=== PATIENT | male | born 1960 | race Caucasian/White ===

== ENCOUNTER 2019-06-22 11:30 | Inpatient (IN) | payer MEDICARE, OTHER ==
[~2019-06-22] VITALS: Ht 185.4 cm; Wt 81.2 kg
[2019-06-22] MEDS ORDERED: SODIUM CHLORIDE 0.9% 500 ML IV ONE (12:44)
[2019-06-22 13:05] LABS: BASOPHILS % 1.2 % (0.0-2.0); EOSINOPHILS % 1.9 % (0.0-5.0); HEMATOCRIT. 35.8 % (42.0-52.0); HEMOGLOBIN. 12.6 g/dL (14.0-18.0); LYMPHOCYTES % 19.4 % (20.0-50.0); MEAN CORPUSCULAR VOLUME 99.5 fL (80.0-94.0); MEAN PLATELET VOLUME 8.1 fl (7.4-10.4); MONOCYTES % 13.6 % (2.0-8.0); NEUTROPHILS % 63.9 % (40.0-76.0); PLATELET 182 x1000/uL (130-400); RED CELL DISTRIBUTION WIDTH 16.5 % (11.6-14.6)
[2019-06-22 13:09] LABS: PROTHROMBIN TIME 10.6 sec (9.6-11.0)
[2019-06-22 13:10] LABS: CHLORIDE 93 mEq/L (98-107)
[2019-06-22 13:15] LABS: ETHANOL BLOOD < 10 mg/dL
[2019-06-22] MEDS ORDERED: PIPERACILLIN/TAZ 3.375G PREMIX 50 ML IV ONE (13:30)
[2019-06-22] MEDS ORDERED: SODIUM CHLORIDE 0.9% 1000ML BAG (SEPSIS BOLUS) IV ONE (13:30)
[2019-06-22] MEDS ORDERED: DOCUSATE SODIUM 100MG CAPSULE PO PRN (15:30)
[2019-06-22] MEDS ORDERED: DEXTROSE 50% WATER 50ML SYRINGE IV PRN (15:30)
[2019-06-22] MEDS ORDERED: IPRATROPIUM/ALBUTEROL 0.5-3(2.5)MG/3ML NEB NEB PRN (15:30)
[2019-06-22] MEDS ORDERED: ONDANSETRON HCL 4MG/2ML INJ IV PRN (15:30)
[2019-06-22] MEDS ORDERED: MAGNESIUM/ALUMINUM HYDROXIDE/SIMETHICONE 30ML UDC PO PRN (15:30)
[2019-06-22] MEDS ORDERED: NITROGLYCERIN 0.4MG TABLET SL SL PRN (15:30)
[2019-06-22] MEDS ORDERED: GUAIFENESIN 200MG/10ML SUGAR FREE UDC PO PRN (15:30)
[2019-06-22] MEDS ORDERED: PIPERACILLIN/TAZ 3.375G PREMIX 50 ML IV SCH (15:30)
[2019-06-22] MEDS ORDERED: ACETAMINOPHEN 325MG TABLET PO PRN (15:30)
[2019-06-22 20:48] VITALS: BP 120/69
[2019-06-22 21:00] VITALS: BP 120/69
[2019-06-22] MEDS: BLOOD SUGAR DIAGNOSTIC STRIP TEST SCH (23:00)
[2019-06-22] MEDS: INSULIN LISPRO 100 UNITS/ML SUBCUT SCH (23:00)
[2019-06-23] VITALS: BP 110/56
[2019-06-23] MEDS ORDERED: VANCOMYCIN 1250MG in DEXTROSE 5% WATER 250ML IV NR ×2
[2019-06-23] MEDS: ASCORBIC ACID 500 MG TABLET PO SCH ×3 (00:04→20:46)
[2019-06-23] MEDS: SEVELAMER CARBONATE 800 MG TABLET PO SCH ×4 (00:05→18:28)
[2019-06-23] MEDS: ZOLPIDEM TARTRATE 5MG TABLET PO PRN ×2 (00:05→22:39)
[2019-06-23 01:02] LABS: CREATINE KINASE 62 IU/L (39-308)
[2019-06-23 01:03] LABS: CREATINE KINASE MB FRACTION 1.1 ng/mL (0.5-3.6)
[2019-06-23] MEDS: PIPERACILLIN/TAZOBACTAM 2.25 G in DEXTROSE 5% WATER 50 ML IV SCH ×2 (03:20→15:05)
[2019-06-23 04:00] VITALS: BP 128/57
[2019-06-23 07:34] LABS: CREATINE KINASE 52 IU/L (39-308)
[2019-06-23 07:35] LABS: CREATINE KINASE MB FRACTION < 1.0 ng/mL (0.5-3.6)
[2019-06-23] MEDS: INSULIN LISPRO 100 UNITS/ML SUBCUT SCH ×4 (08:10→20:49)
[2019-06-23] MEDS: BLOOD SUGAR DIAGNOSTIC STRIP TEST SCH ×4 (08:33→20:49)
[2019-06-23] MEDS: ZINC SULFATE 220 MG ( 50 ) CAPSULE PO SCH (09:30)
[2019-06-23] MEDS: ASPIRIN 325MG EC TABLET PO SCH (09:30)
[2019-06-23] MEDS: FOLIC ACID/VITAMIN B COMP W-C TABLET PO SCH (09:30)
[2019-06-23] MEDS: ENOXAPARIN 30MG/0.3ML SYR SUBCUT SCH (09:30)
[2019-06-23] MEDS: FAMOTIDINE 20MG TABLET PO SCH (09:31)
[2019-06-23 12:00] VITALS: BP 138/79
[2019-06-23 16:00] VITALS: BP 140/76
[2019-06-23 19:43] VITALS: BP 141/72
[2019-06-23] MEDS: CLONIDINE 0.1MG TABLET PO PRN (20:47)
[2019-06-23] MEDS: TRAMADOL 50MG TABLET PO PRN (22:40)
[2019-06-24 00:05] VITALS: BP 123/69
[2019-06-24] MEDS: PIPERACILLIN/TAZOBACTAM 2.25 G in DEXTROSE 5% WATER 50 ML IV SCH ×2 (01:36→13:31)
[2019-06-24 04:00] VITALS: BP 131/68
[2019-06-24] MEDS: BLOOD SUGAR DIAGNOSTIC STRIP TEST SCH ×4 (05:38→20:56)
[2019-06-24 07:59] LABS: BASOPHILS % 0.8 % (0.0-2.0); EOSINOPHILS % 3.1 % (0.0-5.0); HEMATOCRIT. 33.6 % (42.0-52.0); HEMOGLOBIN. 11.6 g/dL (14.0-18.0); LYMPHOCYTES % 28.9 % (20.0-50.0); MEAN CORPUSCULAR HEMOGLOBIN 34.4 pg (28.0-32.0); MEAN CORPUSCULAR VOLUME 100.1 fL (80.0-94.0); MONOCYTES % 14.1 % (2.0-8.0); NEUTROPHILS % 53.1 % (40.0-76.0); PLATELET 175 x1000/uL (130-400); RED BLOOD CELL COUNT 3.36 mill/uL (4.7-6.1)
[2019-06-24 08:00] VITALS: BP 135/69
[2019-06-24] MEDS: INSULIN LISPRO 100 UNITS/ML SUBCUT SCH ×4 (08:04→20:56)
[2019-06-24] MEDS: SEVELAMER CARBONATE 800 MG TABLET PO SCH ×3 (08:56→18:24)
[2019-06-24] MEDS: ASCORBIC ACID 500 MG TABLET PO SCH ×2 (08:57→20:56)
[2019-06-24] MEDS: FOLIC ACID/VITAMIN B COMP W-C TABLET PO SCH (08:57)
[2019-06-24] MEDS: ASPIRIN 325MG EC TABLET PO SCH (08:57)
[2019-06-24] MEDS: ENOXAPARIN 30MG/0.3ML SYR SUBCUT SCH (08:57)
[2019-06-24] MEDS: FAMOTIDINE 20MG TABLET PO SCH (08:57)
[2019-06-24] MEDS: ZINC SULFATE 220 MG ( 50 ) CAPSULE PO SCH (08:57)
[2019-06-24 12:00] VITALS: BP 138/88
[2019-06-24] MEDS ORDERED: VANCOMYCIN 1 G PREMIX 200 ML IV NR (14:00)
[2019-06-24 16:00] VITALS: BP 153/70
[2019-06-24 20:00] VITALS: BP 151/72
[2019-06-24] MEDS: ZOLPIDEM TARTRATE 5MG TABLET PO PRN (23:08)
[2019-06-24] MEDS: TRAMADOL 50MG TABLET PO PRN (23:11)
[2019-06-25 00:05] VITALS: BP 152/76
[2019-06-25] MEDS: PIPERACILLIN/TAZOBACTAM 2.25 G in DEXTROSE 5% WATER 50 ML IV SCH ×2 (01:53→14:03)
[2019-06-25 04:00] VITALS: BP 153/78
[2019-06-25] MEDS: BLOOD SUGAR DIAGNOSTIC STRIP TEST SCH ×4 (05:49→20:59)
[2019-06-25 07:34] LABS: HEMATOCRIT. 32.6 % (42.0-52.0); HEMOGLOBIN. 11.3 g/dL (14.0-18.0); MEAN CORPUSCULAR HEMOGLOBIN 34.6 pg (28.0-32.0); MEAN CORPUSCULAR VOLUME 100.1 fL (80.0-94.0); MEAN PLATELET VOLUME 7.8 fl (7.4-10.4); PLATELET 169 x1000/uL (130-400); RED BLOOD CELL COUNT 3.25 mill/uL (4.7-6.1); RED CELL DISTRIBUTION WIDTH 15.5 % (11.6-14.6)
[2019-06-25 08:00] VITALS: BP 149/77
[2019-06-25] MEDS: INSULIN LISPRO 100 UNITS/ML SUBCUT SCH ×4 (08:10→21:00)
[2019-06-25] MEDS: SEVELAMER CARBONATE 800 MG TABLET PO SCH ×3 (08:54→18:11)
[2019-06-25] MEDS: ZINC SULFATE 220 MG ( 50 ) CAPSULE PO SCH (08:54)
[2019-06-25] MEDS: FAMOTIDINE 20MG TABLET PO SCH (08:55)
[2019-06-25] MEDS: ASCORBIC ACID 500 MG TABLET PO SCH ×2 (08:55→20:56)
[2019-06-25] MEDS: ASPIRIN 325MG EC TABLET PO SCH (08:55)
[2019-06-25] MEDS: FOLIC ACID/VITAMIN B COMP W-C TABLET PO SCH (08:55)
[2019-06-25] MEDS: ENOXAPARIN 30MG/0.3ML SYR SUBCUT SCH (08:55)
[2019-06-25 09:50] LABS: PLATELET ESTIMATE NORMAL
[2019-06-25 12:00] VITALS: BP 136/72
[2019-06-25 16:00] VITALS: BP 126/75
[2019-06-25 20:00] VITALS: BP 165/81
[2019-06-25] MEDS: CLONIDINE 0.1MG TABLET PO PRN (20:56)
[2019-06-25] MEDS: ZOLPIDEM TARTRATE 5MG TABLET PO PRN (20:59)
[2019-06-26 00:05] VITALS: BP 152/74
[2019-06-26] MEDS: PIPERACILLIN/TAZOBACTAM 2.25 G in DEXTROSE 5% WATER 50 ML IV SCH (02:23)
[2019-06-26 04:00] VITALS: BP 163/76
[2019-06-26 06:40] LABS: BASOPHILS % 0.6 % (0.0-2.0); HEMATOCRIT. 30.5 % (42.0-52.0); HEMOGLOBIN. 10.5 g/dL (14.0-18.0); LYMPHOCYTES % 23.7 % (20.0-50.0); MEAN CORPUSCULAR HEMOGLOBIN 34.1 pg (28.0-32.0); MEAN CORPUSCULAR VOLUME 99.5 fL (80.0-94.0); MEAN PLATELET VOLUME 7.7 fl (7.4-10.4); MONOCYTES % 14.9 % (2.0-8.0); NEUTROPHILS % 57.8 % (40.0-76.0); PLATELET 168 x1000/uL (130-400); RED BLOOD CELL COUNT 3.07 mill/uL (4.7-6.1); RED CELL DISTRIBUTION WIDTH 15.8 % (11.6-14.6)
[2019-06-26] MEDS: BLOOD SUGAR DIAGNOSTIC STRIP TEST SCH (07:40)
[2019-06-26 08:00] VITALS: BP 148/72
[2019-06-26] MEDS: INSULIN LISPRO 100 UNITS/ML SUBCUT SCH (08:10)
[2019-06-26] MEDS: ENOXAPARIN 30MG/0.3ML SYR SUBCUT SCH (09:00)
[2019-06-26] MEDS: ASCORBIC ACID 500 MG TABLET PO SCH (09:43)
[2019-06-26] MEDS: FAMOTIDINE 20MG TABLET PO SCH (09:43)
[2019-06-26] MEDS: FOLIC ACID/VITAMIN B COMP W-C TABLET PO SCH (09:43)
[2019-06-26] MEDS: ZINC SULFATE 220 MG ( 50 ) CAPSULE PO SCH (09:43)
[2019-06-26] MEDS: ASPIRIN 325MG EC TABLET PO SCH (09:43)
[2019-06-26] MEDS: SEVELAMER CARBONATE 800 MG TABLET PO SCH (09:46)
[2019-06-26 10:15] VITALS: BP 138/67
== END 2019-06-26 10:50 | disposition home or self-care (01) | DRG 871 ==
LOC: ER 11:45 → 7WST 14:44 → EDBEDREQ 14:55 → EDBEDREQSVC 14:55 → EDBEDREQTM 14:55 → SUPCPDRO 15:22 → ENRESERV 20:18
PROVIDERS: ADMIT Internal Medicine; ATTEND Internal Medicine
PROC: 5A1D70Z Performance of Urinary Filtration, Intermittent, Less than 6 Hours Per Day (ICD-10-PCS; 2019-06-23)
PROC: 5A1D70Z Performance of Urinary Filtration, Intermittent, Less than 6 Hours Per Day (ICD-10-PCS; 2019-06-24)
PROC: 5A1D70Z Performance of Urinary Filtration, Intermittent, Less than 6 Hours Per Day (ICD-10-PCS; principal; 2019-06-26)
DX: A41.9 Sepsis, unspecified organism (principal); G92 Toxic encephalopathy; N18.6 End stage renal disease; E87.1 Hypo-osmolality and hyponatremia; I12.0 Hypertensive chronic kidney disease with stage 5 chronic kidney disease or end stage renal disease; E87.5 Hyperkalemia; D63.1 Anemia in chronic kidney disease; E11.22 Type 2 diabetes mellitus with diabetic chronic kidney disease; R07.89 Other chest pain; F17.200 Nicotine dependence, unspecified, uncomplicated; Z79.4 Long term (current) use of insulin; Z99.2 Dependence on renal dialysis; Z86.73 Personal history of transient ischemic attack (TIA), and cerebral infarction without residual deficits
CPT/HCPCS: 36415; 71045; 80048; 80061; 80202; 80320; 82550; 82553; 82962; 83036; 83605; 83880; 84145; 84484; 93005; 93306; 93970; 96365; 97161; 97165; 99291; J1650; J2543; J3370; J7030; J7040; J7060; G0480

== ENCOUNTER → 2019-10-12 | Outpatient (CLI) | payer MEDICARE, OTHER ==
[~2019-10-12] MED LIST: IOHEXOL-300 100 ML BOTTLE ONE
== END | disposition home or self-care (01) ==
LOC: RAD 09:30
PROVIDERS: ATTEND Internal Medicine Nephrology
DX: N40.0 Benign prostatic hyperplasia without lower urinary tract symptoms (principal); N26.1 Atrophy of kidney (terminal); N28.1 Cyst of kidney, acquired; J98.4 Other disorders of lung; R31.9 Hematuria, unspecified
CPT/HCPCS: 74177; Q9967

== ENCOUNTER 2023-07-23 16:46 | Inpatient (IN) | payer OTHER, MEDICAID ==
[~2023-07-23] VITALS: Ht 185.4 cm; Wt 82.1 kg
[2023-07-23 16:50] VITALS: O2SAT 96
[2023-07-23] MEDS ORDERED: HYDROMORPHONE HCL/PF 2MG/ML CPJ IV ONE ×2 (17:00→19:30)
[2023-07-23 17:46] LABS: DIFFERENTIAL COMMENT 0; HEMATOCRIT. 27.8 % (42.0-52.0); HEMOGLOBIN. 9.5 g/dL (14.0-18.0); LYMPHOCYTES % 16.1 % (20.0-50.0); MEAN CORPUSCULAR HEMOGLOBIN 34.3 pg (28.0-32.0); MEAN CORPUSCULAR HGB CONC 33.9 g/dL (31.0-37.0); MEAN CORPUSCULAR VOLUME 101.2 fL (80.0-94.0); MEAN PLATELET VOLUME 8.2 fl (7.4-10.4); MONOCYTES % 9.4 % (2.0-8.0); NEUTROPHILS % 72.5 % (40.0-76.0); PLATELET 242 x1000/uL (130-400); RED BLOOD CELL COUNT 2.75 mill/uL (4.7-6.1); RED CELL DISTRIBUTION WIDTH 15.5 % (11.6-14.6); WHITE BLOOD COUNT 8.6 x1000/uL (4.5-11.0)
[2023-07-23 18:05] LABS: ALANINE AMINOTRANSFERASE 11 IU/L (10-49); ALBUMIN 4.3 g/dL (3.2-4.8); ASPARTATE AMINOTRANSFERASE 28 IU/L (<34); BILIRUBIN TOTAL 0.2 mg/dL (0.1-1.0); CALCIUM 9.5 mg/dL (8.7-10.4); CARBON DIOXIDE 24 mEq/L (21-32); CHLORIDE 102 mEq/L (98-107); CREATININE 4.6 mg/dL (0.6-1.3); GLUCOSE 97 mg/dL (70-105); POTASSIUM 4.1 mEq/L (3.5-5.1); PROTEIN TOTAL 7.2 g/dL (6.0-8.3); SODIUM 140 mEq/L (136-145); UREA NITROGEN BLOOD 16 mg/dL (9-23)
[2023-07-23 18:09] LABS: LACTIC ACID 2.9 mmol/L (0.4-2.0)
[2023-07-23] MEDS ORDERED: SODIUM CHLORIDE 0.9% 1,000 ML IV ONE (18:45)
[2023-07-23] MEDS ORDERED: MORPHINE SULFATE 4 MG/ML CPJ (NOT FOR IM USE) IV ONE (19:30)
[2023-07-23 19:54] LABS: INR 1.2; PROTHROMBIN TIME 12.7 sec (9.6-11.0)
[2023-07-23] MEDS ORDERED: ASPIRIN 325MG EC TABLET PO ONE (20:45)
[2023-07-23] MEDS ORDERED: HEPARIN 5000 UNITS/ML VIAL IV ONE (20:45)
[2023-07-23] MEDS ORDERED: GABAPENTIN 300MG CAPSULE PO SCH (22:15)
[2023-07-24] MEDS ORDERED: IOHEXOL-350 100 ML BOTTLE ONE (01:13)
[2023-07-24 01:36] VITALS: BP 150/73; PULSE 65; RESP 19; TEMP 98.6
[2023-07-24] MEDS ORDERED: GABA-529 MT (02:14)
[2023-07-24] MEDS ORDERED: CINA60 MT (02:14)
[2023-07-24] MEDS ORDERED: APIX5TAB PO (02:14)
[2023-07-24] MEDS ORDERED: OMEP40CA20 MT (02:14)
[2023-07-24] MEDS ORDERED: SEVE800T8 MT (02:14)
[2023-07-24] MEDS ORDERED: ESCI10TA MT (02:14)
[2023-07-24] MEDS ORDERED: ASPI-1497 MT (02:14)
[2023-07-24] MEDS ORDERED: CARV6.2548 MT (02:14)
[2023-07-24] MEDS ORDERED: MIRT7.5T11 MT (02:14)
[2023-07-24] MEDS ORDERED: ATOR40TA70 PO (02:14)
[2023-07-24] MEDS ORDERED: CLOP75TA33 MT (02:14)
[2023-07-24] MEDS ORDERED: HYDRALAZINE 20MG/ML VIAL IV PRN (02:30)
[2023-07-24] MEDS ORDERED: NALOXONE HCL 0.4MG/ML VIAL IV PRN (02:45)
[2023-07-24] MEDS: GABAPENTIN 100MG CAPSULE PO SCH ×3 (06:32→21:55)
[2023-07-24] MEDS: OMEPRAZOLE 20MG CAPSULE EXTENDED RELEASE PO SCH (06:32)
[2023-07-24] MEDS: HYDROCODONE/ACETAMINOPHEN 5/325MG TABLET PO PRN ×2 (06:34→15:27)
[2023-07-24 08:00] VITALS: PULSE 63; RESP 15; TEMP 99
[2023-07-24] MEDS: APIXABAN 5 MG TABLET PO SCH (10:20)
[2023-07-24] MEDS: SEVELAMER CARBONATE 800 MG TABLET PO SCH ×3 (10:20→18:05)
[2023-07-24] MEDS: CARVEDILOL 6.25 MG TABLET PO SCH ×2 (10:21→21:57)
[2023-07-24] MEDS: CLOPIDOGREL 75MG TABLET PO SCH (10:21)
[2023-07-24] MEDS: CINACALCET HCL 60MG TABLET PO SCH (10:21)
[2023-07-24] MEDS: ASPIRIN 81MG TABLET PO SCH (10:22)
[2023-07-24 12:00] VITALS: PULSE 56; RESP 20; TEMP 98
[2023-07-24 16:00] VITALS: BP 108/53; PULSE 61; RESP 18; TEMP 99.1
[2023-07-24] MEDS: HYDROCODONE/ACETAMINOPHEN 10/325MG TABLET PO PRN (18:55)
[2023-07-24 20:00] VITALS: BP 109/48; PULSE 60; RESP 21; TEMP 97.9
[2023-07-24] MEDS: ATORVASTATIN CALCIUM 40MG TABLET PO SCH (21:55)
[2023-07-24] MEDS: MIRTAZAPINE 15MG TABLET PO SCH (21:57)
[2023-07-25] VITALS: BP 127/60; PULSE 67; RESP 21; TEMP 98.8
[2023-07-25] MEDS: HYDROCODONE/ACETAMINOPHEN 10/325MG TABLET PO PRN ×3 (02:18→18:11)
[2023-07-25 04:00] VITALS: BP 125/54; PULSE 61; RESP 22; TEMP 98.8
[2023-07-25] MEDS: GABAPENTIN 100MG CAPSULE PO SCH ×3 (05:53→21:19)
[2023-07-25] MEDS: OMEPRAZOLE 20MG CAPSULE EXTENDED RELEASE PO SCH (05:53)
[2023-07-25 08:00] VITALS: BP 139/68; PULSE 69; RESP 21; TEMP 98.2
[2023-07-25] MEDS: CINACALCET HCL 60MG TABLET PO SCH (08:11)
[2023-07-25] MEDS: SEVELAMER CARBONATE 800 MG TABLET PO SCH ×3 (08:16→17:59)
[2023-07-25] MEDS: CLOPIDOGREL 75MG TABLET PO SCH (08:16)
[2023-07-25] MEDS: APIXABAN 5 MG TABLET PO SCH (08:16)
[2023-07-25] MEDS: ASPIRIN 81MG TABLET PO SCH (08:17)
[2023-07-25] MEDS: CARVEDILOL 6.25 MG TABLET PO SCH ×2 (08:21→21:20)
[2023-07-25 12:00] VITALS: BP 116/61; PULSE 61; RESP 15; TEMP 97.6
[2023-07-25 16:00] VITALS: BP 120/60; PULSE 61; RESP 19; TEMP 97.6
[2023-07-25 20:00] VITALS: BP 106/69; PULSE 69; RESP 18; TEMP 98.5
[2023-07-25] MEDS: MIRTAZAPINE 15MG TABLET PO SCH (21:19)
[2023-07-25] MEDS: ATORVASTATIN CALCIUM 40MG TABLET PO SCH (21:19)
[2023-07-26] VITALS (13 sets, daily range): BP systolic 113–188; BP diastolic 52–102; PULSE 58–98; RESP 16–20; TEMP 97.4–99
[2023-07-26] MEDS: HYDROCODONE/ACETAMINOPHEN 10/325MG TABLET PO PRN ×3 (02:10→18:55)
[2023-07-26] MEDS: GABAPENTIN 100MG CAPSULE PO SCH ×3 (06:00→22:03)
[2023-07-26] MEDS: OMEPRAZOLE 20MG CAPSULE EXTENDED RELEASE PO SCH (06:41)
[2023-07-26 06:46] LABS: BASOPHILS % 0.6 % (0.0-2.0); DIFFERENTIAL COMMENT 0; EOSINOPHILS % 3.5 % (0.0-5.0); HEMATOCRIT. 26.1 % (42.0-52.0); HEMOGLOBIN. 8.6 g/dL (14.0-18.0); LYMPHOCYTES % 18.1 % (20.0-50.0); MEAN CORPUSCULAR HEMOGLOBIN 33.8 pg (28.0-32.0); MEAN CORPUSCULAR HGB CONC 33.1 g/dL (31.0-37.0); MEAN CORPUSCULAR VOLUME 101.9 fL (80.0-94.0); MEAN PLATELET VOLUME 8.2 fl (7.4-10.4); MONOCYTES % 11.1 % (2.0-8.0); NEUTROPHILS % 66.7 % (40.0-76.0); PLATELET 217 x1000/uL (130-400); RED BLOOD CELL COUNT 2.56 mill/uL (4.7-6.1); WHITE BLOOD COUNT 6.4 x1000/uL (4.5-11.0)
[2023-07-26] MEDS: SEVELAMER CARBONATE 800 MG TABLET PO SCH ×3 (07:20→17:20)
[2023-07-26 07:58] LABS: CALCIUM 8.4 mg/dL (8.7-10.4); POTASSIUM 4.9 mEq/L (3.5-5.1)
[2023-07-26] MEDS: CINACALCET HCL 60MG TABLET PO SCH ×2 (09:00→09:22)
[2023-07-26] MEDS: ASPIRIN 81MG TABLET PO SCH (09:22)
[2023-07-26] MEDS: CARVEDILOL 6.25 MG TABLET PO SCH ×2 (09:22→22:02)
[2023-07-26] MEDS: APIXABAN 5 MG TABLET PO SCH (09:24)
[2023-07-26] MEDS: CLOPIDOGREL 75MG TABLET PO SCH (09:24)
[2023-07-26] MEDS ORDERED: VANCOMYCIN 2,000 MG in DEXT 5% WATER 500 ML IV SCH (11:30)
[2023-07-26] MEDS ORDERED: CEFTRIAXONE 1,000 MG in DEXTROSE 5% WATER 50 ML IV SCH (12:00)
[2023-07-26] MEDS ORDERED: HEPARIN 1000 UNITS/ML 10ML ONE (14:13)
[2023-07-26] MEDS ORDERED: LIDOCAINE HCL 1% 20ML VIAL (Pyxis) INJ ONE ×2 (14:14→15:16)
[2023-07-26] MEDS ORDERED: IODIXANOL 320MG/ML 100 ML BOTTLE IV ONE ×2 (14:15→15:58)
[2023-07-26] MEDS ORDERED: MIDAZOLAM HCL 2 MG/2 ML VIAL ONE (14:58)
[2023-07-26] MEDS ORDERED: FENTANYL CITRATE/PF 50MCG/ML 2ML VIAL ONE ×2 (14:58→15:43)
[2023-07-26] MEDS ORDERED: INFLUENZA VACCINE 05/PF 0.5 ML SYRINGE IM ONE (15:00)
[2023-07-26] MEDS ORDERED: HYDRALAZINE 20MG/ML VIAL ONE (16:58)
[2023-07-26] MEDS: NYSTATIN POWDER 15GM TOP SCH (17:00)
[2023-07-26] MEDS ORDERED: EPOETIN ALFA 4000UNITS/ML VIAL SUBCUT SCH (21:00)
[2023-07-26] MEDS: MIRTAZAPINE 15MG TABLET PO SCH (22:02)
[2023-07-26] MEDS: ATORVASTATIN CALCIUM 40MG TABLET PO SCH (22:02)
[2023-07-26] MEDS: CEFTRIAXONE 1,000 MG in DEXTROSE 5% WATER 50 ML IV SCH (22:56)
[2023-07-27] VITALS: BP 102/46; PULSE 79; RESP 18; TEMP 99.7
[2023-07-27 01:25] LABS: HEPATITIS A AB IGM NEGATIVE (Negative); HEPATITIS B CORE AB IGM NEGATIVE (Negative); HEPATITIS B SURFACE ANTIGEN NEGATIVE (Negative); HEPATITIS C AB NON REACTIVE (Neg) (Negative)
[2023-07-27 04:00] VITALS: BP 99/56; PULSE 73; RESP 18; TEMP 97.9
[2023-07-27] MEDS: OMEPRAZOLE 20MG CAPSULE EXTENDED RELEASE PO SCH (06:11)
[2023-07-27] MEDS: GABAPENTIN 100MG CAPSULE PO SCH ×3 (06:12→21:09)
[2023-07-27] MEDS: HYDROCODONE/ACETAMINOPHEN 10/325MG TABLET PO PRN ×2 (06:19→12:31)
[2023-07-27 07:05] LABS: BASOPHILS % 0.5 % (0.0-2.0); EOSINOPHILS % 1.5 % (0.0-5.0); HEMATOCRIT. 25.3 % (42.0-52.0); HEMOGLOBIN. 8.5 g/dL (14.0-18.0); LYMPHOCYTES % 9.4 % (20.0-50.0); MEAN CORPUSCULAR HEMOGLOBIN 33.5 pg (28.0-32.0); MEAN CORPUSCULAR HGB CONC 33.7 g/dL (31.0-37.0); MEAN CORPUSCULAR VOLUME 99.3 fL (80.0-94.0); MEAN PLATELET VOLUME 8.1 fl (7.4-10.4); MONOCYTES % 10.5 % (2.0-8.0); NEUTROPHILS % 78.1 % (40.0-76.0); PLATELET 211 x1000/uL (130-400); RED BLOOD CELL COUNT 2.54 mill/uL (4.7-6.1); RED CELL DISTRIBUTION WIDTH 16.3 % (11.6-14.6); WHITE BLOOD COUNT 9.2 x1000/uL (4.5-11.0)
[2023-07-27 07:32] LABS: CALCIUM 8.8 mg/dL (8.7-10.4); POTASSIUM 4.5 mEq/L (3.5-5.1)
[2023-07-27 08:00] VITALS: BP 102/58; RESP 19; TEMP 98.2
[2023-07-27 08:02] LABS: CREATININE 8.9 mg/dL (0.6-1.3)
[2023-07-27] MEDS: SEVELAMER CARBONATE 800 MG TABLET PO SCH ×3 (08:56→18:26)
[2023-07-27] MEDS: CLOPIDOGREL 75MG TABLET PO SCH (08:57)
[2023-07-27] MEDS: CARVEDILOL 6.25 MG TABLET PO SCH ×2 (08:57→21:00)
[2023-07-27] MEDS: CINACALCET HCL 60MG TABLET PO SCH (08:57)
[2023-07-27] MEDS: ASPIRIN 81MG TABLET PO SCH (08:57)
[2023-07-27] MEDS: NYSTATIN POWDER 15GM TOP SCH ×2 (08:58→17:00)
[2023-07-27] MEDS ORDERED: LIDOCAINE HCL 1% 10 MG/ML 10ML VIAL INJ NR (09:00)
[2023-07-27 10:00] VITALS: BP 106/60; RESP 18; TEMP 98.1
[2023-07-27 12:00] VITALS: BP 112/63; RESP 20; TEMP 97.8
[2023-07-27] MEDS ORDERED: HYDRALAZINE 10 MG in SODIUM CHLORIDE 0.9% 49.5 ML IV PRN (16:45)
[2023-07-27 19:43] LABS: IRON 31 ug/dL (65-175); TOTAL IRON BINDING CAPACITY 291 ug/dl (250-425)
[2023-07-27 20:00] VITALS: BP 121/52; PULSE 71; RESP 18; TEMP 97.6
[2023-07-27 20:01] LABS: FOLIC ACID (FOLATE) SERUM > 20.00 ng/mL (>5.38); VITAMIN B12 SERUM 586 pg/mL (211-911)
[2023-07-27] MEDS: MIRTAZAPINE 15MG TABLET PO SCH (21:00)
[2023-07-27] MEDS: ATORVASTATIN CALCIUM 40MG TABLET PO SCH (21:00)
[2023-07-27] MEDS ORDERED: CARV3.1242 MT (21:39)
[2023-07-27] MEDS ORDERED: GABA-532 MT (21:39)
[2023-07-27] MEDS ORDERED: VIAG100 MT (21:39)
[2023-07-27] MEDS ORDERED: CINA90TA MT (21:39)
[2023-07-27] MEDS ORDERED: HYDR-4005 PO (21:39)
[2023-07-27] MEDS ORDERED: SUCR500T MT (21:39)
[2023-07-27] MEDS ORDERED: APIX5TAB MT (21:39)
[2023-07-27] MEDS ORDERED: ACET-2708 MT (21:39)
[2023-07-27] MEDS: CEFTRIAXONE 1,000 MG in DEXTROSE 5% WATER 50 ML IV SCH (23:00)
[2023-07-28] VITALS (12 sets, daily range): BP systolic 130–150; BP diastolic 61–88; PULSE 20–78; RESP 16–20; TEMP 98–98.4
[2023-07-28] MEDS: HYDROCODONE/ACETAMINOPHEN 5/325MG TABLET PO PRN ×2 (05:40→17:33)
[2023-07-28] MEDS: GABAPENTIN 100MG CAPSULE PO SCH ×2 (05:40→14:00)
[2023-07-28] MEDS ORDERED: LIDOCAINE HCL 1% 10 MG/ML 10ML VIAL ONE (08:07)
[2023-07-28] MEDS: SEVELAMER CARBONATE 800 MG TABLET PO SCH ×2 (08:49→12:50)
[2023-07-28] MEDS: OMEPRAZOLE 20MG CAPSULE EXTENDED RELEASE PO SCH (08:49)
[2023-07-28] MEDS: CARVEDILOL 6.25 MG TABLET PO SCH (08:49)
[2023-07-28] MEDS: CLOPIDOGREL 75MG TABLET PO SCH (08:49)
[2023-07-28] MEDS: ASPIRIN 81MG TABLET PO SCH (08:49)
[2023-07-28] MEDS: CINACALCET HCL 60MG TABLET PO SCH (08:49)
[2023-07-28] MEDS ORDERED: ASPI-1406 PO (21:34)
[2023-07-28] MEDS ORDERED: SEVE800T8 PO (21:48)
[2023-07-29] MEDS ORDERED: FAMOTIDINE 20MG TABLET PO SCH (09:00)
== END 2023-07-29 04:41 | disposition left against medical advice (07) | DRG 278 ==
LOC: ER 16:46 → EDBEDREQ 22:42 → EDBEDREQSVC 22:48 → EDBEDREQTM 22:48 → MICUSO 23:47 → 3WST 07-24 01:12 → 6WST 07-27 12:54
PROVIDERS: ADMIT Internal Medicine; ATTEND Internal Medicine
PROC: 04FL3ZZ Fragmentation of Left Femoral Artery, Percutaneous Approach (ICD-10-PCS; principal; 2023-07-26)
PROC: 04FN3ZZ Fragmentation of Left Popliteal Artery, Percutaneous Approach (ICD-10-PCS; 2023-07-26)
PROC: 047L3ZZ Dilation of Left Femoral Artery, Percutaneous Approach (ICD-10-PCS; 2023-07-26)
PROC: 047N3ZZ Dilation of Left Popliteal Artery, Percutaneous Approach (ICD-10-PCS; 2023-07-26)
PROC: B41D1ZZ Fluoroscopy of Aorta and Bilateral Lower Extremity Arteries using Low Osmolar Contrast (ICD-10-PCS; 2023-07-26)
PROC: 5A1D70Z Performance of Urinary Filtration, Intermittent, Less than 6 Hours Per Day (ICD-10-PCS; 2023-07-26)
PROC: 0HDRXZZ Extraction of Toe Nail, External Approach (ICD-10-PCS; 2023-07-27)
PROC: 5A1D70Z Performance of Urinary Filtration, Intermittent, Less than 6 Hours Per Day (ICD-10-PCS; 2023-07-28)
PROC: 02HV33Z Insertion of Infusion Device into Superior Vena Cava, Percutaneous Approach (ICD-10-PCS; 2023-07-28)
PROC: B548ZZA Ultrasonography of Superior Vena Cava, Guidance (ICD-10-PCS; 2023-07-28)
PROC: B5181ZA Fluoroscopy of Superior Vena Cava using Low Osmolar Contrast, Guidance (ICD-10-PCS; 2023-07-28)
DX: E11.52 Type 2 diabetes mellitus with diabetic peripheral angiopathy with gangrene (principal); N18.6 End stage renal disease; M86.172 Other acute osteomyelitis, left ankle and foot; I70.262 Atherosclerosis of native arteries of extremities with gangrene, left leg; I12.0 Hypertensive chronic kidney disease with stage 5 chronic kidney disease or end stage renal disease; E11.621 Type 2 diabetes mellitus with foot ulcer; E11.69 Type 2 diabetes mellitus with other specified complication; L97.529 Non-pressure chronic ulcer of other part of left foot with unspecified severity; B35.3 Tinea pedis; Z53.29 Procedure and treatment not carried out because of patient's decision for other reasons; Z20.822 Contact with and (suspected) exposure to COVID-19; E11.22 Type 2 diabetes mellitus with diabetic chronic kidney disease; L60.0 Ingrowing nail; D53.9 Nutritional anemia, unspecified; Z99.2 Dependence on renal dialysis; Z79.01 Long term (current) use of anticoagulants; Z79.02 Long term (current) use of antithrombotics/antiplatelets; Z79.82 Long term (current) use of aspirin; Z86.73 Personal history of transient ischemic attack (TIA), and cerebral infarction without residual deficits; Z90.5 Acquired absence of kidney; Z95.820 Peripheral vascular angioplasty status with implants and grafts; Z79.899 Other long term (current) drug therapy
CPT/HCPCS: 36415; 36573; 37224; 73630; 73721; 75635; 75710; 80048; 80053; 80202; 82607; 82746; 83540; 83550; 83605; 84145; 85025; 85347; 85651; 86705; 86709; 87340; 87426; 90935; 99285; C1725; C1760; C1769; C1887; C1894; J0360; J0696; J0885; J1170; J1644; J2250; J2270; J3010; J3370; J3490; J7060; Q9967; C1761